=== PATIENT | male | born 1980 | race Caucasian/White ===

== ENCOUNTER 2017-03-13 19:57 | Emergency (ER) | payer OTHER ==
[~2017-03-13] VITALS: Ht 185.4 cm; Wt 138.0 kg
[~2017-03-13 19:57] MED LIST: DILANTIN100 MG PO
[2017-03-13] MEDS ORDERED: DILANTIN100 MG PO ×2 (21:08→21:23)
[2017-03-13 21:32] VITALS: BP 156/67
== END 2017-03-13 21:32 | disposition home or self-care (01) ==
LOC: EME 19:57
DX: Z76.0 Encounter for issue of repeat prescription (principal); G40.909 Epilepsy, unspecified, not intractable, without status epilepticus; F17.200 Nicotine dependence, unspecified, uncomplicated
CPT/HCPCS: 99281; 99284